=== PATIENT | male | born 1965 | race Caucasian/White ===

== ENCOUNTER 2020-07-03 02:20 | Emergency (ER) | payer MEDICAID ==
[~2020-07-03] VITALS: Ht 172.7 cm; Wt 66.6 kg
[2020-07-03 02:24] VITALS: BP 139/89
--- NOTE | 2020-07-03 02:56 | NUR ---
PT. REPORTS WAKING FROM SLEEP WITH SCROTUM/PENIS SWELLING THAT HASN'T GONE DOWN IN 24 HOURS.
[2020-07-03] MEDS ORDERED: DIPHENHYDRAMINE 25 MG CAPSULE ONE (03:13)
[2020-07-03 03:28] LABS: BASOPHILS % (AUTO) 0 % (0-1); EOSINOPHILS % (AUTO) 3 % (1-7); LYMPHOCYTES % (AUTO) 14 % (22-44); MEAN CORPUSCULAR HEMOGLOBIN 31.7 pg (27.5-34.5); MEAN CORPUSCULAR HGB CONC 33.2 g/dL (33.2-36.2); MEAN PLATELET VOLUME 7.9 fL (7.4-10.4); MONOCYTES % (AUTO) 8 % (2-9); NEUTROPHILS % (AUTO) 75 % (42-75); PLATELET COUNT 291 x10^3/uL (130-400); RED BLOOD COUNT 4.33 x10^6/uL (4.38-5.82)
[2020-07-03] MEDS ORDERED: DIPHENHYDRAMINE 25 MG CAPSULE PO ONE (03:30)
[2020-07-03 03:34] LABS: ALANINE AMINOTRANSFERASE 19 U/L (12-78); ALBUMIN 3.5 g/dL (3.4-5.0); ANION GAP 4 mmol/L (5-15); CALCIUM 8.4 mg/dL (8.5-10.1); CHLORIDE 111 mmol/L (98-107); CREATININE 0.74 mg/dL (0.7-1.3)
[2020-07-03 03:37] LABS: ALKALINE PHOSPHATASE 52 U/L (45-117); BILIRUBIN,TOTAL 0.2 mg/dL (0.2-1.0); MD NO; TOTAL PROTEIN 6.8 g/dL (6.4-8.2)
--- NOTE | 2020-07-03 04:05 | NUR ---
URINE SAMPLE COLLECTED AND WALKED TO LAB.
[2020-07-03 04:15] LABS: MICROSCOPIC NOT IND
[2020-07-03 04:26] LABS: AMPHETAMINE SCREEN, URINE Negative (Negative); BARBITURATE SCREEN, URINE Negative (Negative); BENZODIAZEPINE SCREEN, URINE Negative (Negative); CANNABINOID SCREEN, URINE Positive (Negative); COCAINE SCREEN, URINE Negative (Negative); METHADONE SCREEN, URINE Negative (Negative); OPIATE SCREEN, URINE Negative (Negative)
--- NOTE | 2020-07-03 05:25 | NUR ---
DR. HOLLINGSWORTH IN TO DISCUSS PLAN FOR D/C AND F/U WITH SPECIALIST WITH PT. PT. AGREES WITH POC.
== END 2020-07-03 05:42 | disposition home or self-care (01) ==
LOC: ED 05:40
DX: N50.89 Other specified disorders of the male genital organs (principal)
CPT/HCPCS: 36415; 76870; 80053; 80307; 81003; 85025; 99284; Q0163